=== PATIENT | female | born 1995 | race Caucasian/White ===

== ENCOUNTER 2023-12-14 03:51 | Emergency (ER) | payer OTHER ==
[2023-12-14] MEDS ORDERED: Acetaminophen 500 MG TAB ONE (04:23)
== END 2023-12-14 08:20 | disposition home or self-care (01) ==
LOC: EEVIPCON 03:51 → ERS 03:51
DX: R51.9 Headache, unspecified (principal); M25.531 Pain in right wrist; F17.290 Nicotine dependence, other tobacco product, uncomplicated; Y04.0XXA Assault by unarmed brawl or fight, initial encounter
CPT/HCPCS: 70450; 72125